=== PATIENT | male | born 1970 | race Caucasian/White ===

== ENCOUNTER 2017-09-30 17:19 | Inpatient (IN) | payer BC, MEDICAID ==
[~2017-09-30] VITALS: Ht 165.1 cm; Wt 66.7 kg
--- NOTE | 2017-09-30 17:22 | NUR ---
LEFT SIDED CHEST PAIN RADIATING TO LEFT ARM X 3 HRS AGO. PLACED ON MONITOR. AWAITING MD ORDER
[2017-09-30] MEDS ORDERED: METO-357 PO (17:54)
[2017-09-30] MEDS ORDERED: ISOS60TA4 PO (17:54)
[2017-09-30] MEDS ORDERED: PIOG30TA10 PO (17:54)
[2017-09-30 17:56] LABS: BASOPHILS % (AUTO) 0.4 % (0.0-2.0); EOSINOPHILS % (AUTO) 0.1 % (0.0-6.0); HEMATOCRIT 49 % (39-51); HEMOGLOBIN 16.1 g/dL (13.5-17.5); LYMPHOCYTES # (AUTO) 0.7 /CMM (0.8-4.8); LYMPHOCYTES % (AUTO) 6.5 % (20.0-44.0); MEAN CORPUSCULAR HEMOGLOBIN 28 PG (26.0-33.0); MEAN CORPUSCULAR HGB CONC 33 g/dl (31.0-36.0); MEAN CORPUSCULAR VOLUME 86 fL (80-96); MONOCYTES # (AUTO) 0.4 /CMM (0.1-1.30); MONOCYTES % (AUTO) 4.4 % (2.0-12.0); NEUTROPHILS % (AUTO) 88.6 % (43.0-81.0); PLATELET COUNT (AUTO) 207 /CMM (150-450); RDW COEFFICIENT OF VARIATION 12.2 (11.5-15.0); RED BLOOD CELL COUNT(AUTO) 5.65 MIL/uL (4.5-6.0); WHITE BLOOD COUNT (AUTO) 10.1 K/uL (4.3-11.0)
[2017-09-30] MEDS ORDERED: NITROGLYCERIN PACKET 1 GM PACKET ONE (17:57)
[2017-09-30] MEDS ORDERED: ASPIRIN 325 MG TABLET ONE (17:57)
[2017-09-30] MEDS ORDERED: ASPIRIN 325 MG TABLET PO ONE (18:00)
[2017-09-30] MEDS ORDERED: NITROGLYCERIN PACKET 1 GM PACKET TOP ONE (18:00)
[2017-09-30 18:05] LABS: CALCIUM, SERUM 8.7 mg/dL (8.5-10.1); CARBON DIOXIDE 30 mmol/L (21-32); CHLORIDE 98 mmol/L (98-107); GLUCOSE 321 mg/dL (74-106); POTASSIUM 4.2 mmol/L (3.5-5.1); SODIUM SERUM 136 mmol/L (136-145); UREA NITROGEN, BLOOD 15 mg/dL (7-18)
[2017-09-30 18:09] LABS: INR 0.96 (0.87-1.13)
[2017-09-30 18:14] LABS: TROPONIN I < 0.017 ng/mL (0.00-0.056)
[2017-09-30] MEDS ORDERED: IV NS 0.9% 1,000 ML IV ONE (18:30)
[2017-09-30] MEDS ORDERED: IV NS 0.9% 250 ML IV ONE (18:35)
[2017-09-30] MEDS ORDERED: IOHEXOL-350 100 ML VIAL IV ONE (18:35)
--- NOTE | 2017-09-30 18:59 | NUR ---
GAVE REPORT TO XAVIER FOR EVELIN
--- NOTE | 2017-09-30 19:01 | NUR ---
RECEIVED REPORT FROM MONSERRAT ROJAS FOR EVELIN.
--- NOTE | 2017-09-30 19:16 | NUR ---
RADIOLOGY AT BEDSIDE FOR XRAY
--- NOTE | 2017-09-30 19:23 | NUR ---
DR. MENARD SPOKE TO DR. HOBBS REGARDING ADMISSION
[2017-09-30 19:30] VITALS: BP 112/69
--- NOTE | 2017-09-30 19:32 | NUR ---
PT ASSIGNED TO 320-1 TELE
--- NOTE | 2017-09-30 19:34 | NUR ---
REPORT GIVEN TO MONSERRAT HERNANDEZ FOR EVELIN FOR TELE BED 320-2
--- NOTE | 2017-09-30 19:38 | NUR ---
ADMITTING MONSERRAT HERNANDEZ AWARE IVF TRANSFUSING ON ADMISSION
--- NOTE | 2017-09-30 19:43 | NUR ---
RN NOTES NEW ADMISSION ARRIVED IN UNIT, ALERT AND ORIENTED X4, ANXIOUS SECONDARY TO CHEST PAIN OF 5/10, RADIATING TO LEFT ARM TO LEFT UPPER BACK. ON AUSCULTATION, LUNG SOUNDS ARE CLEAR, SPO2 AT ROOM AIR 98%, ABDOMEN SOFT AND NON-TENDER, ACTIVE BOWEL SOUNDS, COMPLAINING OF HEARTBURN, PER PATIENT "I FEEL THE ACID COMING UP." LEFT AC PERIPHERAL LINE IS PATENT AND INFUSING NS X1L ONLY. SKIN ASSESSMENT PERFORMED, ORIENTED TO ROOM AND USE OF CALL LIGHT, ACCOMPANIED BY NEPHEW. KEPT COMFORTABLE, CALL LIGHT WITHIN REACH.
--- NOTE | 2017-09-30 19:50 | NUR ---
PT TRASNFERRED TO TELE BED 320-1 PER ACLS PROTOCOL.
[2017-09-30 20:00] VITALS: BP 112/69
[2017-09-30] MEDS ORDERED: MAG HYDROX/AL HYDROX/SIMETH 30 ML UDC PO PRN (21:00)
[2017-09-30] MEDS ORDERED: NITROGLYCERIN 0.4 MG/TAB BOTTLE SL PRN (21:00)
[2017-09-30] MEDS ORDERED: ACETAMINOPHEN 325 MG TABLET PO PRN (21:00)
[2017-09-30] MEDS ORDERED: ZOLPIDEM TARTRATE 5 MG TABLET PO PRN (21:00)
[2017-09-30] MEDS ORDERED: Z GUARD REMEDY 2 OZ OINT TP PRN (21:00)
[2017-09-30] MEDS ORDERED: ONDANSETRON HCL/PF 4 MG/2 ML VIAL IVP PRN (21:00)
[2017-09-30] MEDS ORDERED: MAGNESIUM HYDROXIDE 30 ML UDC PO PRN (21:00)
[2017-09-30] MEDS ORDERED: DEXTROSE 50%-WATER 50 ML DISP.SYRIN IV PRN (21:00)
[2017-09-30] MEDS ORDERED: HYDROCODONE/APAP 5/325MG 1 EACH TABLET PO PRN (21:00)
[2017-09-30] MEDS ORDERED: MORPHINE SULFATE INJ 2 MG/ML DISP.SYRIN ONE (21:06)
[2017-09-30] MEDS ORDERED: SIMVASTATIN 40 MG TABLET ONE (21:06)
[2017-09-30] MEDS: MORPHINE SULFATE INJ 2 MG/ML DISP.SYRIN IV PRN (21:25)
[2017-09-30] MEDS: SIMVASTATIN 20 MG TABLET PO SCH (21:26)
[2017-09-30] MEDS: BLOOD SUGAR DIAGNOSTIC 1 EACH STRIP IN SCH (21:26)
--- NOTE | 2017-09-30 21:30 | NUR ---
RN NOTES SIMVASTATIN GIVEN PER PATIENT'S REQUEST
--- NOTE | 2017-09-30 21:30 | NUR ---
RN NOTES GIVEN MORPHINE 2MG IVP FOR CHEST PAIN OF 5/10, ZOFRAN IVP FOR NAUSEA. PATIENT REFUSING INSULIN, EXPLAINED TO PATIENT AND FAMILY MEMBERS BENEFITS OF INSULIN AND RISKS OF NOT TAKING INSULIN FOR BG OF 203. PATIENT AGREED TO TAKE INSULIN.
[2017-09-30] MEDS ORDERED: ONDANSETRON HCL/PF 4 MG/2 ML VIAL ONE (21:47)
[2017-09-30] MEDS: INSULIN REGULAR, HUMAN 100 UNIT/ML 3 ML VIAL SQ PRN (21:52)
--- NOTE | 2017-09-30 22:10 | NUR ---
RN NOTES PATIENT VERBALIZED RELIEF FROM HEARTBURN AND CHEST PAIN. KEPT COMFORTABLE, CALL LIGHT WITHIN REACH.
--- NOTE | 2017-09-30 23:19 | NUR ---
RN NOTES SEEN BY DR. HOBBS, NEW ORDER OF NPO AFTER MIDNIGHT FOR POSSIBLE CARDIAC CONSULT IN AM. DIET EXPLAINED TO PATIENT
[2017-10-01] VITALS (7 sets, daily range): BP systolic 101–123; BP diastolic 65–80
[2017-10-01] MEDS: INSULIN REGULAR, HUMAN 100 UNIT/ML 3 ML VIAL SQ PRN ×5 (06:13→21:29)
--- NOTE | 2017-10-01 06:13 | NUR ---
RN NOTES BG 258 MG/DL, NO INSULIN GIVEN, PATIENT NPO
--- NOTE | 2017-10-01 06:41 | NUR ---
RN NOTES PATIENT AWAKE AND ALERT, NO SOB, NO DISTRESS, SLEPT FOR 6 HOURS, NO REPORT OF CHEST PAIN AFTER RECEIVING MORPHINE IVP, REMINDED PATIENT OF BEING NPO AND FOR CARDIAC CONSULT. NEEDS ATTENDED, CALL LIGHT WITHIN REACH.
--- NOTE | 2017-10-01 07:20 | NUR ---
ballet dancer initial notes Received patient in bed awake, head of bed elevated, no SOB or distress noted on room air. on tele monitor SR heart rate of 96, no complaint of pain or discomfort at this time, nor chest pain. IV intact and patent SL only. Ambulatory steady. Alert and oriented x 4, verbally responsive and able to make needs known. NPO for cardiac consult. Kept patient clean and comfortable in bed, call light with in patient reach, will continue to monitor accordingly.
[2017-10-01 08:06] LABS: BASOPHILS % (AUTO) 0.4 % (0.0-2.0); EOSINOPHILS % (AUTO) 0.6 % (0.0-6.0); HEMATOCRIT 44 % (39-51); HEMOGLOBIN 14.7 g/dL (13.5-17.5); LYMPHOCYTES # (AUTO) 0.8 /CMM (0.8-4.8); LYMPHOCYTES % (AUTO) 13.7 % (20.0-44.0); MEAN CORPUSCULAR HEMOGLOBIN 29 PG (26.0-33.0); MEAN CORPUSCULAR HGB CONC 34 g/dl (31.0-36.0); MEAN CORPUSCULAR VOLUME 86 fL (80-96); MONOCYTES # (AUTO) 0.6 /CMM (0.1-1.30); MONOCYTES % (AUTO) 9.3 % (2.0-12.0); NEUTROPHILS # (AUTO) 4.6 /CMM (1.8-8.9); PLATELET COUNT (AUTO) 196 /CMM (150-450); RDW COEFFICIENT OF VARIATION 12.3 (11.5-15.0); RED BLOOD CELL COUNT(AUTO) 5.06 MIL/uL (4.5-6.0); WHITE BLOOD COUNT (AUTO) 6.1 K/uL (4.3-11.0)
[2017-10-01 08:21] LABS: CALCIUM, SERUM 7.7 mg/dL (8.5-10.1); CREATININE 0.7 mg/dL (0.6-1.3); MAGNESIUM 1.8 mg/dL (1.8-2.4); PHOSPHORUS 3.5 mg/dL (2.5-4.9); POTASSIUM 3.6 mmol/L (3.5-5.1)
[2017-10-01 08:22] LABS: THYROID STIMULATING HORMONE 0.419 uIU/mL (0.358-3.74)
[2017-10-01] MEDS: BLOOD SUGAR DIAGNOSTIC 1 EACH STRIP IN SCH ×4 (08:31→21:25)
[2017-10-01] MEDS: ASPIRIN EC 81 MG TABLET.DR PO SCH (08:57)
[2017-10-01] MEDS: ISOSORBIDE MONONITRATE (30MG) 30 MG TAB.SR.24H PO SCH (08:57)
[2017-10-01] MEDS: METOPROLOL SUCCINATE 50 MG TAB.SR.24H PO SCH (08:58)
[2017-10-01] MEDS: PIOGLITAZONE HCL 15 MG TABLET PO SCH (08:58)
--- NOTE | 2017-10-01 19:20 | NUR ---
telegraphic typewriter mechanic closing notes All needs provided, attended, and anticipated. Kept patient clean and comfortable. Endorsed to next shift RN to continue care. On tele monitor SR heart rate of 96.
--- NOTE | 2017-10-01 20:00 | NUR ---
HUMAN SERVICE TECHNICIAN NOTE RECEIVED PATIENT AWAKE AND ALERT IN BED. FAMILY AT BEDSIDE. PATIENT DENIES ANY PAIN OR DISCOMFORT. IV SITE INTACT, WITH NO REDNESS NOTED. BED LOCKED AND IN LOWEST POSITION. SIDE RAILS UP, CALL LIGHT WITHIN REACH. WILL CONTINUE TO MONITOR.
[2017-10-01] MEDS: SIMVASTATIN 20 MG TABLET PO SCH (21:26)
[2017-10-01] MEDS: MORPHINE SULFATE INJ 2 MG/ML DISP.SYRIN IV PRN (21:30)
[2017-10-01] MEDS ORDERED: ATORVASTATIN 10 MG TABLET PO SCH (22:00)
--- NOTE | 2017-10-01 22:00 | NUR ---
TRAUMA DIRECTOR NOTE BLOOD SUGAR 218. INSULIN GIVEN PER SLIDING SCALE. WILL CONTINUE TO MONITOR.
[2017-10-02] VITALS: BP 128/71
[2017-10-02 04:00] VITALS: BP 118/77
--- NOTE | 2017-10-02 06:29 | NUR ---
cable television access coordinator note Patient stable. All needs met and attended to. NPO since midnight for stress test. Blood sugar 299. Insulin held until after test. Will endorse to day shift for niyah.
--- NOTE | 2017-10-02 07:26 | NUR ---
RN MS INITIAL NOTES Received pt laying in bed comfortably. a/o x4, respirations are even and unlabored, not in any acute distress noted. Denies any pain at this time, w/ no facial grimacing noted. Reminded pt to use call light when assistance is needed, call light is left within reach. Will continue to monitor pt throughtout shift.
[2017-10-02 08:00] VITALS: BP 102/64
[2017-10-02] MEDS ORDERED: REGADENOSON 0.4 MG/5 ML DISP.SYRIN IVP ONE (08:00)
[2017-10-02] MEDS: BLOOD SUGAR DIAGNOSTIC 1 EACH STRIP IN SCH ×2 (09:43→12:47)
--- NOTE | 2017-10-02 09:45 | NUR ---
RN MS NOTES Blood sugar checked this am of 299 with no coverage d/t pt being NPO prior to scheduled stress test.
[2017-10-02] MEDS: PIOGLITAZONE HCL 15 MG TABLET PO SCH (11:24)
[2017-10-02] MEDS: METOPROLOL SUCCINATE 50 MG TAB.SR.24H PO SCH (11:24)
[2017-10-02] MEDS: ASPIRIN EC 81 MG TABLET.DR PO SCH (11:24)
[2017-10-02] MEDS: ISOSORBIDE MONONITRATE (30MG) 30 MG TAB.SR.24H PO SCH (11:25)
[2017-10-02 12:00] VITALS: BP 112/80
[2017-10-02] MEDS ORDERED: LOSARTAN POTASSIUM 50 MG TABLET PO SCH (12:00)
[2017-10-02] MEDS: INSULIN REGULAR, HUMAN 100 UNIT/ML 3 ML VIAL SQ PRN (12:58)
--- NOTE | 2017-10-02 13:00 | NUR ---
NM:CARDIAC STRESS TEST WAS COMPLETED. TECH:RB.
[2017-10-02] MEDS ORDERED: OMEG1CAP55 PO (14:34)
[2017-10-02] MEDS ORDERED: LOSA50TA3 PO (14:34)
[2017-10-02] MEDS ORDERED: ASPI-1152 PO (14:34)
[2017-10-02] MEDS ORDERED: SIMV20TA6 PO (14:34)
[2017-10-02 16:00] VITALS: BP 123/77
--- NOTE | 2017-10-02 16:48 | NUR ---
RN MS Discharge Note 1610 Patient discharged to home with sister Sheri and brother in law Juan R in stable condition via personnel vehicle. a/o x4, respirations are even and unlabored, not in any acute distress noted. vital signs are WNL. Denies any pain at this time. Met and rendered pt's needs. Explained discharged paperwork and verbal agreement. Peripheral IV to right arm taken out prior to departure, no s/sx of infection. Denies any pain and tolerated well. Patient left with all belongings and discharge paperwork in stable condition.
== END 2017-10-02 16:15 | disposition home or self-care (01) | DRG 206 ==
LOC: ER 17:21 → TELE 19:53 → MED 10-02 13:34
DX: M94.0 Chondrocostal junction syndrome [Tietze] (principal); I11.0 Hypertensive heart disease with heart failure; D73.4 Cyst of spleen; I50.9 Heart failure, unspecified; I25.10 Atherosclerotic heart disease of native coronary artery without angina pectoris; E11.9 Type 2 diabetes mellitus without complications; E78.5 Hyperlipidemia, unspecified; Z83.3 Family history of diabetes mellitus; Z79.84 Long term (current) use of oral hypoglycemic drugs; Z79.899 Other long term (current) drug therapy; Z72.0 Tobacco use
CPT/HCPCS: 36415; 71010-TC; 80048-TC; 80061-TC; 82962-TC; 83735-TC; 84100-TC; 84443-TC; 84484-TC; 85025-TC; 85730-TC; 87081-TC; 93307-TC; A4606; A9502; J1815; J2270; J2405; J2785; J7030; J7050; Q9967; Z7610